=== PATIENT | male | born 1955 | race Caucasian/White ===

== ENCOUNTER 2017-03-31 08:30 | Day surgery (SDC) | payer OTHER ==
[2017-03-28 11:55] VITALS: BMI 25.8
[2017-03-31 08:47] LABS: #Eosinphils 0.2 thou/uL (0.0-0.7); #Monocytes 0.9 thou/uL (0.11-0.59); #Neutrophils 10.9 thou/uL (1.40-6.50); %Basophils 0.3 % (0.0-1.0); %Eosinophils 1.4 % (0.0-10.0); %Lymphocytes 13.9 % (21.0-51.0); %Monocytes 6.6 % (0.0-10.0); Hematocrit 52.1 % (42.0-52.0); Mean Platelet Volume 8.2 fL (7.4-10.4); Red Blood Cell (RBC) Count 5.55 mill/uL (4.70-6.10)
[2017-03-31 08:57] LABS: Prothrombin Time 12.7 SEC (12.0-14.7)
[2017-03-31 08:58] LABS: PTT 31.2 SEC (22.9-36.1)
[2017-03-31] MEDS ORDERED: FLU VACC QS2017-18 36 mo. & older 0.5 ML SYRINGE IM ONE (09:00)
[2017-03-31] MEDS ORDERED: Sodium Bicarbonate 2.4 MEQ/5 ML ONE (10:12)
[2017-03-31] MEDS ORDERED: Midazolam HCl 2 mg/2 ml Vial ONE (10:12)
[2017-03-31] MEDS ORDERED: Fentanyl 100 MCG/2 ML VIAL ONE (10:12)
[2017-03-31 14:07] VITALS: BP 129/77; TEMP 97.2
--- NOTE | 2017-03-31 15:14 | CT ---
CT GUIDED PELVIC MASS BIOPSY: History: Bone lesion. Abnormal MRI. FINDINGS: After explaining the procedure and obtaining informed consent, the patient was placed on the CT table in prone position. Initial retail attendant imaging confirmed destructive lesion at the L5 level of the spine. In addition, an expansile, destructive lesion of the right iliac bone was partially visualized. This has the appearance of the same process as the spine lesion. Given the location and relative safety of biopsy of the pelvis lesion compared to the spinal lesion, it was chosen as the target. Sterile technique, buffered local anesthesia, and CT guidance were used to carefully advance a 17 gau ge Trocar needle to the bone lesion. Three 18 gauge core specimens were obtained, each 3 cm in length , and submitted to Dr. Neal from Pathology, who confirmed specimen adequacy. Needle was removed. Pos t procedure images show no evidence of complication. Patient tolerated the procedure well and was ret urned to the holding area in good condition for further monitoring. IMPRESSION: Technically successful CT guided right pelvis bone mass lesion. This lesion appears to represent the same process as the destructive L5 lesion. Pathology is pending. POS: [facility]
== END 2017-03-31 12:00 | disposition home or self-care (01) ==
LOC: CT 08:30
PROVIDERS: ATTEND Neurological Surgery
PROC: 0QB23ZX Excision of Right Pelvic Bone, Percutaneous Approach, Diagnostic (ICD-10-PCS; principal; 2017-03-31)
DX: C41.4 Malignant neoplasm of pelvic bones, sacrum and coccyx (principal); I10 Essential (primary) hypertension; E78.5 Hyperlipidemia, unspecified; G51.0 Bell's palsy; F17.200 Nicotine dependence, unspecified, uncomplicated; Z79.82 Long term (current) use of aspirin; Z79.899 Other long term (current) drug therapy; Z88.0 Allergy status to penicillin; Z91.030 Bee allergy status
CPT/HCPCS: 20225; 36415; 77012; 85025; 85610; 85730; 88184; 88307; 88333; 88341; 88342; J2250; J3010

== ENCOUNTER 2017-05-07 12:31 | Day surgery (SDC) | payer SELFPAY ==
[2017-05-07] MEDS ORDERED: Famotidine/PF 20 MG, Admixture Fee 1 EACH in Sodium Chloride 0.9% 50 ML IVPB SCH (13:30)
[2017-05-07] MEDS ORDERED: PACLITAXEL IVPB SCH (13:30)
[2017-05-07] MEDS ORDERED: Dexamethasone 20 MG, Admixture Fee 1 EACH in Sodium Chloride 0.9% 50 ML IVPB SCH (13:30)
[2017-05-07] MEDS ORDERED: ADMIXTURE FEE IVPB SCH ×2 (13:30→13:45)
[2017-05-07] MEDS ORDERED: SODIUM CHLORIDE IVPB SCH ×2 (13:30→13:45)
[2017-05-07] MEDS ORDERED: diphenhydrAMINE 50 MG, Admixture Fee 1 EACH in Sodium Chloride 0.9% 50 ML IVPB SCH (13:30)
[2017-05-07] MEDS ORDERED: Palonosetron HCl 0.25 MG, Admixture Fee 1 EACH in Sodium Chloride 0.9% 50 ML IVPB SCH (13:30)
[2017-05-07] MEDS ORDERED: PALONOSETRON HCL 0.05 MG/ML 5 ML VIAL IVP SCH (13:45)
[2017-05-07] MEDS ORDERED: CARBOPLATIN IVPB SCH (13:45)
[2017-05-07] MEDS ORDERED: Famotidine/PF 20 mg/2ml Vial SLOW IVP SCH (13:45)
[2017-05-07 15:36] VITALS: BP 106/57; TEMP 98.7
[2017-05-07] MEDS ORDERED: Sodium Chloride 0.9% 20 ML ONE (15:47)
[2017-05-07] MEDS ORDERED: Sodium Chloride 0.9% 10 ML ONE (19:30)
== END 2017-05-07 19:53 | disposition home or self-care (01) ==
LOC: ONC/OP 12:31
PROVIDERS: ATTEND Internal Medicine Hematology & Oncology
DX: Z51.11 Encounter for antineoplastic chemotherapy (principal); C41.4 Malignant neoplasm of pelvic bones, sacrum and coccyx; G51.0 Bell's palsy; I10 Essential (primary) hypertension; E78.5 Hyperlipidemia, unspecified; Z88.0 Allergy status to penicillin; Z91.030 Bee allergy status; Z79.82 Long term (current) use of aspirin; Z79.899 Other long term (current) drug therapy; Z90.49 Acquired absence of other specified parts of digestive tract; Z98.890 Other specified postprocedural states; Z80.1 Family history of malignant neoplasm of trachea, bronchus and lung
CPT/HCPCS: 96367; 96375; 96413; 96415; A4216; J1100; J1200; J2469; J7050; J9045; J9267; S0028

== ENCOUNTER 2017-05-28 12:36 | Day surgery (SDC) | payer SELFPAY ==
[2017-05-28 12:56] VITALS: BP 118/58; TEMP 98.2
[2017-05-28] MEDS ORDERED: PALONOSETRON HCL 0.05 MG/ML 5 ML VIAL IVP SCH (13:00)
[2017-05-28] MEDS ORDERED: PACLITAXEL IVPB SCH (13:00)
[2017-05-28] MEDS ORDERED: Famotidine 40 MG/4 ML VIAL SLOW IVP SCH (13:00)
[2017-05-28] MEDS ORDERED: diphenhydrAMINE 50 MG/ML VIAL IVP SCH (13:00)
[2017-05-28] MEDS ORDERED: CARBOPLATIN IVPB SCH (13:00)
[2017-05-28] MEDS ORDERED: Dexamethasone 20 MG/5 ML VIAL SLOW IVP SCH (13:00)
[2017-05-28] MEDS ORDERED: SODIUM CHLORIDE IVPB SCH ×2 (13:00)
[2017-05-28] MEDS ORDERED: ADMIXTURE FEE IVPB SCH ×2 (13:00)
[2017-05-28] MEDS ORDERED: Sodium Chloride 0.9% 30 ML ONE (13:01)
[2017-05-28] MEDS ORDERED: Famotidine/PF 20 mg/2ml Vial SLOW IVP SCH (13:15)
[2017-05-28] MEDS ORDERED: Dexamethasone 10 MG/ML VIAL SLOW IVP SCH (13:30)
== END 2017-05-28 18:01 | disposition home or self-care (01) ==
LOC: ONC/OP 12:36
PROVIDERS: ATTEND Internal Medicine Hematology & Oncology
DX: Z51.11 Encounter for antineoplastic chemotherapy (principal); C34.30 Malignant neoplasm of lower lobe, unspecified bronchus or lung; R03.0 Elevated blood-pressure reading, without diagnosis of hypertension; G51.0 Bell's palsy; E78.00 Pure hypercholesterolemia, unspecified; F17.210 Nicotine dependence, cigarettes, uncomplicated; Z88.0 Allergy status to penicillin; Z91.030 Bee allergy status; Z79.82 Long term (current) use of aspirin; Z79.899 Other long term (current) drug therapy; Z90.49 Acquired absence of other specified parts of digestive tract; Z98.890 Other specified postprocedural states; Z80.1 Family history of malignant neoplasm of trachea, bronchus and lung
CPT/HCPCS: 96375; 96413; 96415; 96417; A4216; J1100; J1200; J2469; J7050; J9045; J9267; S0028

== ENCOUNTER 2017-06-18 10:42 | Day surgery (SDC) | payer OTHER, SELFPAY ==
[2017-06-18] MEDS ORDERED: SODIUM CHLORIDE IVPB SCH ×2 (11:30)
[2017-06-18] MEDS ORDERED: PALONOSETRON HCL 0.05 MG/ML 5 ML VIAL IVP SCH (11:30)
[2017-06-18] MEDS ORDERED: Dexamethasone 10 MG/ML VIAL SLOW IVP SCH (11:30)
[2017-06-18] MEDS ORDERED: Famotidine/PF 20 mg/2ml Vial IVPB SCH (11:30)
[2017-06-18] MEDS ORDERED: diphenhydrAMINE 50 MG/ML VIAL IVP SCH (11:30)
[2017-06-18] MEDS ORDERED: ADMIXTURE FEE IVPB SCH ×2 (11:30)
[2017-06-18] MEDS ORDERED: CARBOPLATIN IVPB SCH (11:30)
[2017-06-18] MEDS ORDERED: PACLITAXEL IVPB SCH (11:30)
[2017-06-18] MEDS ORDERED: Sodium Chloride 0.9% 20 ML ONE (11:31)
[2017-06-18 11:48] VITALS: BP 144/63; TEMP 99
== END 2017-06-18 16:31 | disposition home or self-care (01) ==
LOC: ONC/OP 10:42
PROVIDERS: ATTEND Internal Medicine Hematology & Oncology
DX: Z51.11 Encounter for antineoplastic chemotherapy (principal); C34.30 Malignant neoplasm of lower lobe, unspecified bronchus or lung; C79.51 Secondary malignant neoplasm of bone; R03.0 Elevated blood-pressure reading, without diagnosis of hypertension; E78.00 Pure hypercholesterolemia, unspecified; G51.0 Bell's palsy; F17.210 Nicotine dependence, cigarettes, uncomplicated; Z79.82 Long term (current) use of aspirin; Z79.899 Other long term (current) drug therapy; Z88.0 Allergy status to penicillin; Z91.030 Bee allergy status
CPT/HCPCS: 96375; 96413; 96415; 96417; A4216; J1100; J1200; J2469; J7050; J9045; J9267; S0028

== ENCOUNTER 2017-07-04 09:07 | Outpatient (CLI) | payer OTHER ==
[2017-07-04] MEDS ORDERED: Iopamidol 370 76% 100 ML VIAL ONE (11:32)
--- NOTE | 2017-07-04 12:03 | CT ---
CT THORAX WITH CONTRAST CT ABDOMEN WITH CONTRAST CT PELVIS WITH CONTRAST: DATE: 07-04-17 HISTORY: 61-year-old male with C34.30 malignant neoplasm of lower lobe, unspecified bronchus or lung. COMPARISON: The only prior studies available for comparison are CT guided bone biopsy of right pelvis, with limit ed field of view, and prior MRI of the lumbar spine of 03-05-17. There are no prior dedicated CT stud ies of the chest, abdomen, or pelvis. TECHNIQUE: IV iodinated contrast media: 100 ml Isovue 370 Oral contrast media: Redicat Single phase scans of thorax, abdomen, and pelvis. FINDINGS: There is a tiny 0.6 x 0.9 x 0.5 cm noncalcified pulmonary nodule located at the posterior segment of the left upper lobe, that contains a central cavitation. (Images 21 of 63, series 3; 166 of 1040, ser ies 4; and 88 of 151, series 601). Located more superiorly in the left upper lobe, in the apical post erior segment, there is a larger noncalcified pulmonary nodule close to the left lateral pleural surf edwin, which is stellate and irregular, making measurements imprecise. It is approximately 1.4 x 1.1 x 1.0 cm, containing multifocal cavitations and spiculated margins (Images 12 of 63, series 3; 86 of 15 1, series 601; 94 of 1040, series 4). The rest of the lungs are clear, with no airspace densities, ground glass densities, or consolidation s. No pleural effusion or pneumothorax. No bronchiectasis or bullous disease. Trachea and bronchi are patent and clear. No cardiomegaly. Normal thoracic aorta. No mediastinal or hilar lymphadenopathy. C alcification of LAD. Nondisplaced pathologic fracture of anterolateral aspect of left first rib. Mixe d sclerotic and lucent lesion of lateral aspect of left second rib, also involved with nondisplaced p athologic fracture. Small mixed sclerotic and osteolytic lesion involving the lateral aspect of right 8th rib. Expansile mixed osteolytic and sclerotic lesion of posterolateral aspect of right 11th rib, mostly osteolytic. Mixed sclerotic and osteolytic lesion involving right T11 vertebral pedicle. Liver, kidneys, adrenals, and spleen are normal. Pancreas is atrophic but has no evidence of acute pa ncreatitis or mass. No evidence of major lymphadenopathy involving portahepatis, retroperitoneum, mes entery, or iliac chains. No small bowel dilatation. No signs of acute colonic diverticulitis. No pneu moperitoneum or ascites. Large destruction, expansile mixed osteolytic and osteoblastic lesion involving a large portion of th e right iliac ring has grown significantly since the CT guided biopsy of 03-31-17. There is soft tiss ue mild low attenuation of the right iliactus muscle which may or may not be involved by the tumor. T he previously demonstrated pathologic fracture of L5 vertebral body has further lost its height, and is now severely collapsed. Both osteolytic and osteoblastic components, and soft tissue components na rrow the spinal canal. There are also extensive osteolytic lesions involving the bilateral sacral ala . There is a predominately osteolytic, expansile lesion involving the lesser trochanter of the right pr oximal femur. No free fluid within the pelvic cavity. Nonspecific mild mural thickening of the urinar y bladder. Prostate gland has calcifications, but is not significantly enlarged. Extensive atheroscle rotic disease of the abdominal aorta and iliac arteries without aneurysm. IMPRESSION: 1. Multiple osseous metastases involving ribs (some with pathologic fractures), at least one level in the thoracic spine, at least one level in the lumbar spine, sacrum, right iliac bone, and right prox imal femur. 2. The L5 lesion has become larger and causes severe central spinal canal stenosis and severe bilater al neural foraminal stenosis. 3. The large right iliac wing lesion has grown much larger. 4. Two very small left upper lobe cavitary pulmonary nodules. 5. No involvement of the contents of the abdominal and pelvic cavities. OLEGARIO Garza POS: [facility]
--- NOTE | 2017-07-04 14:27 | NM ---
WHOLE BODY BONE SCAN: Date: 07/04/17 INDICATION: History of lung cancer. COMPARISON: CT of the chest, abdomen, and pelvis dated 07/04/17. FINDINGS: There is prominent activity seen involving the right iliac bone corresponding to an expansile lesion in the right iliac wing. There is some focal activity seen within the posterior left sacrum. There is a prominent lucent lesion involving the right sacral ala which may demonstrate some peripheral activ ity. There is heterogeneous uptake seen involving L5 vertebra suspicious for metastatic disease. Ther e is a focal lesion within the right T11 pedicle. The lesion is within the right posterolateral 11th and right lateral 8th rib, which is suspicious for metastatic disease. There is a pathologic fracture involving the left anterolateral first rib. There is a lesion within the anterolateral left second r ib. There is a focal area of activity involving the left calvarium in the region of the left frontal region suspicious for focal metastatic disease. There is activity seen within the proximal femurs fabiano aterally, corresponding to metastatic lesions. IMPRESSION: Diffuse osseous metastatic disease. POS: [facility]
== END 2017-07-04 09:08 | disposition home or self-care (01) ==
LOC: CT 09:07
PROVIDERS: ATTEND Internal Medicine Hematology & Oncology
DX: C34.30 Malignant neoplasm of lower lobe, unspecified bronchus or lung (principal); C79.51 Secondary malignant neoplasm of bone; R91.8 Other nonspecific abnormal finding of lung field; M48.061 Spinal stenosis, lumbar region without neurogenic claudication; M99.53 Intervertebral disc stenosis of neural canal of lumbar region
CPT/HCPCS: 71260; 74177; 78306; 82565; A9503

== ENCOUNTER 2017-07-09 11:48 | Day surgery (SDC) | payer OTHER ==
[2017-07-09] MEDS ORDERED: CARBOPLATIN IVPB SCH (12:00)
[2017-07-09] MEDS ORDERED: SODIUM CHLORIDE 0.9% IVPB SCH ×2 (12:00)
[2017-07-09] MEDS ORDERED: PACLITAXEL IVPB SCH (12:00)
[2017-07-09] MEDS ORDERED: Famotidine 40 MG/4 ML VIAL SLOW IVP SCH (12:15)
[2017-07-09] MEDS ORDERED: diphenhydrAMINE 50 MG/ML VIAL IVP SCH (12:15)
[2017-07-09] MEDS ORDERED: Dexamethasone 10 MG/ML VIAL SLOW IVP SCH (12:15)
[2017-07-09] MEDS ORDERED: PALONOSETRON HCL 0.05 MG/ML 5 ML VIAL IVP SCH (12:15)
[2017-07-09] MEDS ORDERED: Sodium Chloride 0.9% 50 ML ONE (12:17)
[2017-07-09 12:29] VITALS: BP 136/68; TEMP 98.7
[2017-07-09] MEDS ORDERED: Famotidine/PF 20 mg/2ml Vial SLOW IVP SCH (12:45)
== END 2017-07-09 16:25 | disposition home or self-care (01) ==
LOC: ONC/OP 11:48
PROVIDERS: ATTEND Internal Medicine Hematology & Oncology
DX: Z51.11 Encounter for antineoplastic chemotherapy (principal); C34.30 Malignant neoplasm of lower lobe, unspecified bronchus or lung; C79.51 Secondary malignant neoplasm of bone; E78.00 Pure hypercholesterolemia, unspecified; F17.210 Nicotine dependence, cigarettes, uncomplicated; I10 Essential (primary) hypertension; Z88.0 Allergy status to penicillin; Z91.030 Bee allergy status; Z79.82 Long term (current) use of aspirin; Z79.899 Other long term (current) drug therapy
CPT/HCPCS: 96375; 96413; 96415; 96417; A4216; J1100; J1200; J2469; J7050; J9045; J9267; S0028

== ENCOUNTER 2017-07-30 11:43 | Day surgery (SDC) | payer OTHER ==
[2017-07-30] MEDS ORDERED: ADMIXTURE FEE IVPB SCH ×2 (12:15→12:30)
[2017-07-30] MEDS ORDERED: PALONOSETRON HCL 0.05 MG/ML 5 ML VIAL IVP SCH (12:15)
[2017-07-30] MEDS ORDERED: CARBOPLATIN IVPB SCH (12:15)
[2017-07-30] MEDS ORDERED: Dexamethasone 10 MG/ML VIAL SLOW IVP SCH (12:15)
[2017-07-30] MEDS ORDERED: SODIUM CHLORIDE IVPB SCH ×2 (12:15→12:30)
[2017-07-30] MEDS ORDERED: ETOPOSIDE IVPB SCH (12:30)
[2017-07-30 13:07] VITALS: BP 89/53; TEMP 98.5
== END 2017-07-30 14:51 | disposition home or self-care (01) ==
LOC: ONC/OP 11:43
PROVIDERS: ATTEND Internal Medicine Hematology & Oncology
DX: Z51.11 Encounter for antineoplastic chemotherapy (principal); C34.30 Malignant neoplasm of lower lobe, unspecified bronchus or lung; C79.51 Secondary malignant neoplasm of bone; F17.210 Nicotine dependence, cigarettes, uncomplicated; Z88.0 Allergy status to penicillin; Z91.030 Bee allergy status; Z79.82 Long term (current) use of aspirin; Z79.899 Other long term (current) drug therapy
CPT/HCPCS: 96375; 96413; 96417; A4216; J1100; J2469; J7050; J9045; J9181

== ENCOUNTER 2017-07-31 12:04 | Day surgery (SDC) | payer OTHER ==
[2017-07-31] MEDS ORDERED: ADMIXTURE FEE IVPB SCH (12:30)
[2017-07-31] MEDS ORDERED: SODIUM CHLORIDE IVPB SCH (12:30)
[2017-07-31] MEDS ORDERED: ETOPOSIDE IVPB SCH (12:30)
[2017-07-31 12:48] VITALS: BP 108/57; TEMP 98.2
== END 2017-07-31 18:23 | disposition home or self-care (01) ==
LOC: ONC/OP 12:04
PROVIDERS: ATTEND Internal Medicine Hematology & Oncology
DX: Z51.11 Encounter for antineoplastic chemotherapy (principal); C34.30 Malignant neoplasm of lower lobe, unspecified bronchus or lung; I10 Essential (primary) hypertension; E78.5 Hyperlipidemia, unspecified; G51.0 Bell's palsy; Z79.82 Long term (current) use of aspirin; Z79.899 Other long term (current) drug therapy; Z88.0 Allergy status to penicillin; Z91.030 Bee allergy status
CPT/HCPCS: 96413; J7050; J9181

== ENCOUNTER 2017-08-01 11:10 | Day surgery (SDC) | payer OTHER ==
[2017-08-01] MEDS ORDERED: Sodium Chloride 0.9% 30 ML ONE (11:16)
[2017-08-01 11:43] VITALS: BP 120/60; TEMP 98.1
[2017-08-01] MEDS ORDERED: SODIUM CHLORIDE 0.9% IVPB SCH (11:45)
[2017-08-01] MEDS ORDERED: ETOPOSIDE IVPB SCH (11:45)
== END 2017-08-01 12:20 | disposition home or self-care (01) ==
LOC: ONC/OP 11:10
PROVIDERS: ATTEND Internal Medicine Hematology & Oncology
DX: Z51.11 Encounter for antineoplastic chemotherapy (principal); C34.30 Malignant neoplasm of lower lobe, unspecified bronchus or lung; I10 Essential (primary) hypertension; E78.5 Hyperlipidemia, unspecified; G51.0 Bell's palsy; Z88.0 Allergy status to penicillin; Z91.030 Bee allergy status; Z98.890 Other specified postprocedural states
CPT/HCPCS: 96413; A4216; J7050; J9181

== ENCOUNTER 2017-08-20 11:16 | Day surgery (SDC) | payer OTHER ==
[2017-08-20] MEDS ORDERED: Acetaminophen 500 MG TAB PO SCH (12:00)
[2017-08-20] MEDS ORDERED: diphenhydrAMINE 25 MG CAP PO SCH (12:00)
[2017-08-20 19:10] VITALS: BP 107/58; TEMP 96
[2017-08-20 19:39] LABS: Anisocytosis SLIGHT = 6-15 cells (100X) (0-5/hpf); Band 1 % (5-11); Eosinophils 1 % (0-10); Hemoglobin 8.1 g/dL (14.0-18.0); Lymphocytes 44 % (21-51); MDiff Complete? YES; Mean Corpuscular HGB CONC 35.8 g/dL (32.0-36.0); Mean Corpuscular Hemoglobin 33.7 pg (27.0-31.0); Mean Corpuscular Volume 94.1 fl (80.0-94.0); Mean Platelet Volume 8.5 fL (7.4-10.4); Monocytes 4 % (0-10); Neutrophil 50 % (42-75); Nucleated RBC 1 % (0); PLT Morphology Comment Appears Decreased; Platelet Count 52 thou/uL (130-400); RBC Distribution Width 14.7 % (11.5-14.5); Red Blood Cell (RBC) Count 2.39 mill/uL (4.70-6.10); White Blood Cell (WBC) Count 1.7 thou/uL (4.8-10.8)
== END 2017-08-20 19:10 | disposition home or self-care (01) ==
LOC: ONC/OP 11:16
PROVIDERS: ATTEND Internal Medicine Hematology & Oncology
PROC: 30233N1 Transfusion of Nonautologous Red Blood Cells into Peripheral Vein, Percutaneous Approach (ICD-10-PCS; principal; 2017-08-20)
DX: C34.90 Malignant neoplasm of unspecified part of unspecified bronchus or lung (principal); D63.0 Anemia in neoplastic disease; D69.6 Thrombocytopenia, unspecified; Z88.0 Allergy status to penicillin; Z91.030 Bee allergy status
CPT/HCPCS: 36415; 36430; 85025; 86850; 86900; 86901; P9016

== ENCOUNTER 2017-08-26 09:11 | Day surgery (SDC) | payer OTHER ==
[2017-08-26] MEDS ORDERED: ADMIXTURE FEE IVPB SCH ×2 (09:45)
[2017-08-26] MEDS ORDERED: Dexamethasone 10 MG/ML VIAL SLOW IVP SCH (09:45)
[2017-08-26] MEDS ORDERED: CARBOPLATIN IVPB SCH (09:45)
[2017-08-26] MEDS ORDERED: SODIUM CHLORIDE IVPB SCH ×2 (09:45)
[2017-08-26] MEDS ORDERED: ETOPOSIDE IVPB SCH (09:45)
[2017-08-26] MEDS ORDERED: PALONOSETRON HCL 0.05 MG/ML 5 ML VIAL IVP SCH (09:45)
[2017-08-26 09:49] VITALS: BP 110/57; TEMP 98.3
[2017-08-26] MEDS ORDERED: Sodium Chloride 0.9% 40 ML ONE (11:03)
== END 2017-08-26 14:31 | disposition home or self-care (01) ==
LOC: ONC/OP 09:11
PROVIDERS: ATTEND Internal Medicine Hematology & Oncology
DX: Z51.11 Encounter for antineoplastic chemotherapy (principal); C34.30 Malignant neoplasm of lower lobe, unspecified bronchus or lung; Z91.030 Bee allergy status; Z88.0 Allergy status to penicillin
CPT/HCPCS: 96375; 96413; 96417; A4216; J1100; J2469; J7050; J9045; J9181

== ENCOUNTER 2017-08-27 09:46 | Day surgery (SDC) | payer OTHER ==
[2017-08-27] MEDS ORDERED: ETOPOSIDE IVPB SCH (10:00)
[2017-08-27] MEDS ORDERED: SODIUM CHLORIDE IVPB SCH (10:00)
[2017-08-27] MEDS ORDERED: ADMIXTURE FEE IVPB SCH (10:00)
[2017-08-27 13:37] VITALS: BP 133/60; TEMP 98.1
== END 2017-08-27 13:40 | disposition home or self-care (01) ==
LOC: ONC/OP 09:46
PROVIDERS: ATTEND Internal Medicine Hematology & Oncology
DX: Z51.11 Encounter for antineoplastic chemotherapy (principal); C34.30 Malignant neoplasm of lower lobe, unspecified bronchus or lung; Z88.0 Allergy status to penicillin; Z91.030 Bee allergy status
CPT/HCPCS: 96413; J7050; J9181

== ENCOUNTER 2017-08-28 09:23 | Day surgery (SDC) | payer OTHER, SELFPAY ==
[2017-08-28] MEDS ORDERED: ETOPOSIDE IVPB SCH (09:45)
[2017-08-28] MEDS ORDERED: ADMIXTURE FEE IVPB SCH (09:45)
[2017-08-28] MEDS ORDERED: SODIUM CHLORIDE IVPB SCH (09:45)
[2017-08-28 10:49] VITALS: BP 143/77; TEMP 98
== END 2017-08-28 11:35 | disposition home or self-care (01) ==
LOC: ONC/OP 09:23
PROVIDERS: ATTEND Internal Medicine Hematology & Oncology
DX: Z51.11 Encounter for antineoplastic chemotherapy (principal); C34.30 Malignant neoplasm of lower lobe, unspecified bronchus or lung; Z88.0 Allergy status to penicillin; Z91.030 Bee allergy status
CPT/HCPCS: 96413; J7050; J9181

== ENCOUNTER 2017-09-03 08:13 | Day surgery (SDC) | payer OTHER, SELFPAY ==
[2017-09-03] MEDS ORDERED: Pegfilgrastim 6 MG/0.6 ML Delivery Kit SQ SCH (08:30)
[2017-09-03] MEDS ORDERED: diphenhydrAMINE 25 MG CAP PO SCH (08:30)
[2017-09-03] MEDS ORDERED: Acetaminophen 500 MG TAB PO SCH (08:30)
[2017-09-03] MEDS ORDERED: Sodium Chloride 0.9% 40 ML ONE (08:45)
[2017-09-03 12:46] LABS: Hemoglobin 8.2 g/dL (14.0-18.0)
[2017-09-03 15:19] VITALS: BP 117/64; TEMP 98.1
== END 2017-09-03 15:19 | disposition home or self-care (01) ==
LOC: ONC/OP 08:13
PROVIDERS: ATTEND Internal Medicine Hematology & Oncology
DX: D64.9 Anemia, unspecified (principal); D69.6 Thrombocytopenia, unspecified; Z88.0 Allergy status to penicillin; Z91.030 Bee allergy status
CPT/HCPCS: 36430; 85014; 85018; 86850; 86900; 86901; 96372; 96377; A4216; J2505; P9016

== ENCOUNTER 2017-09-07 05:33 | Observation (INO) | payer OTHER ==
[2017-09-07] MEDS ORDERED: Aspirin 325 MG TAB ONE (06:15)
[2017-09-07 06:33] LABS: ALT (SGPT) 25 U/L (8-55); AST (SGOT) 18 U/L (5-34); Albumin 4.1 g/dL (3.4-4.8); Alkaline Phosphatase 188 U/L (40-150); Anion Gap 11 mmol/L (10-20); BUN (Urea Nitrogen) 34 mg/dL (8.4-25.7); Bilirubin, Total 0.4 mg/dL (0.2-1.2); CK (CPK) 45 U/L (30-200); Calc. Creatinine Clearance 0 mL/min (70-130); Calcium 9.4 mg/dL (7.8-10.44); Carbon Dioxide 24 mmol/L (23-31); Chloride 108 mmol/L (98-107); Estimated GFR-MDRD 65; Globulin 3.1 g/dL (2.4-3.5); Glucose 102 mg/dL (80-115); Lipase 11 U/L (8-78); Potassium 4.4 mmol/L (3.5-5.1); Protein, Total 7.2 g/dL (5.8-8.1); Sodium 139 mmol/L (136-145)
[2017-09-07 06:34] LABS: Hemoglobin 10.1 g/dL (14.0-18.0); Mean Corpuscular HGB CONC 34.6 g/dL (32.0-36.0); Mean Corpuscular Hemoglobin 32.8 pg (27.0-31.0); Mean Corpuscular Volume 94.7 fl (80.0-94.0); Mean Platelet Volume 8.9 fL (7.4-10.4); Platelet Count 54 thou/uL (130-400); RBC Distribution Width 15.4 % (11.5-14.5); Red Blood Cell (RBC) Count 3.07 mill/uL (4.70-6.10); White Blood Cell (WBC) Count 7.8 thou/uL (4.8-10.8)
[2017-09-07 06:37] LABS: Troponin I Less than 0.010 ng/mL (< 0.028)
[2017-09-07 06:47] LABS: Anisocytosis SLIGHT = 6-15 cells (100X) (0-5/hpf); Band 20 % (5-11); Lymphocytes 16 % (21-51); MDiff Complete? YES; Monocytes 12 % (0-10); Neutrophil 52 % (42-75); PLT Morphology Comment Appears Decreased
--- NOTE | 2017-09-07 09:00 | CT ---
CT ANGIOGRAM OF THE CHEST: HISTORY: Small cell carcinoma of lower back. The patient is undergoing chemotherapy. COMPARISON: None. TECHNIQUE: CT angiogram of the chest is performed in the axial plane. Three-dimensional reformatted images are submitted for interpretation. FINDINGS: No mediastinal mass, lymphadenopathy, or hematoma. Heart size is within normal limits. No pericardi al effusion. The thoracic aorta and upper abdominal aorta have a normal caliber. No periaortic fat stranding. Visualized upper solid organs are unremarkable. Adequate contrast opacification of pulmonary artery system to the level of the segmental arteries. N o filling defect to suggest thromboembolism. No suspicious masses or areas of consolidation of the lung parenchyma. Trachea and central bronchi a re patent. No pneumothorax. There are sclerotic foci in the osseous structures suggesting treated m etastatic lesions. IMPRESSION: No evidence of pulmonary artery embolism to the level of the segmental arteries. POS: [facility]
--- NOTE | 2017-09-07 09:07 | RAD ---
CHEST ONE VIEW: HISTORY: Pain x4 hours. FINDINGS: Normal cardiac silhouette. Lungs and pleural spaces are clear. No pneumothorax or osseous abnormali ties . IMPRESSION: No acute cardiopulmonary process. POS: H
[2017-09-07 09:25] LABS: Troponin I Less than 0.010 ng/mL (< 0.028)
[2017-09-07 09:31] VITALS: BMI 25.1
[2017-09-07] MEDS ORDERED: Regadenoson 0.4 MG/5 ML SYRINGE ONE (11:48)
[2017-09-07] MEDS ORDERED: Mag-Al 1200 mg/1200 mg/30 ML UDCUP PO PRN (12:08)
[2017-09-07] MEDS ORDERED: Acetaminophen 325 MG TAB PO PRN (12:08)
[2017-09-07] MEDS ORDERED: Pepto Bismol Chew TAB PO PRN (12:08)
[2017-09-07] MEDS ORDERED: Ondansetron ODT 8 MG TAB PO PRN (12:08)
[2017-09-07 12:35] LABS: Cardiac Risk 3.6 (Less than 4.5)
[2017-09-07] MEDS ORDERED: Morphine ER 30 MG TAB PO SCH ×2 (13:00→21:00)
[2017-09-07] MEDS ORDERED: ISOVUE-370 76%-LOCM 1 ML ONE (14:11)
[2017-09-07 15:42] VITALS: BP 160/73; TEMP 98.5
--- NOTE | 2017-09-07 15:47 | NM ---
NUCLEAR MEDICINE CARDIAC STRESS WITH EF AND WALL MOTION: HISTORY: Chest pain. COMPARISON: None. TECHNIQUE: The patient was administered 9.5 mCi of Technetium 99m sestamibi for rest imaging and 27 mCi of Techn etium 99m sestamibi for stress imaging. Cardiac gating is performed. FINDINGS: There is homogeneous distribution of the radiotracer on the attenuation correction images. TID is 1.08. End-diastolic volume is 144 mL. End-systolic volume is 66 mL. CARDIAC GATING: Normal motion and thickening of the left ventricle. 54% ejection fraction. IMPRESSION: 1. No evidence of reversibility. No fixed defect. 2. Ejection fraction is 54%. POS: [facility]
--- NOTE | 2017-09-07 15:56 | HP ---
REASON FOR ADMISSION: Chest pain. HISTORY OF PRESENTING ILLNESS: The patient gives history of retrosternal and epigastric pain radiating to the back and both shoulders which started around 11 :30 p.m. yesterday. He tried to sit in his recliner, got worse, but got some relief when he tried to ambulate. Also, patient states that he got 325 mg of aspirin by EMS and felt better after that. He finally called his sister to say the ongoing chest pain at home who in turn called EMS and patient was brought here. No complaints of shortness of breath. The patient has significant history of small cell lung cancer and has finished radiation therapy 3 weeks back and has 1 more chemotherapy session, which is coming up. He has no complaints of cough or expectoration. No complaints of fever. No prior history of peptic ulcer disease. PAST MEDICAL AND SURGICAL HISTORY: History of small cell lung cancer on chemotherapy at present, chronic left Daily's palsy, hypertension, dyslipidemia, appendectomy, left knee surgery. No prior cardiac workup including stress test , recent left eyebrow laceration from a freak accident after he was turning away from a wasp and hit his head. CURRENT MEDICATIONS: The patient is on lisinopril 20 mg daily, amlodipine 5 mg daily, aspirin 81 mg daily, simvastatin 40 mg daily, Lasix 20 mg p.r.n. for ankle edema, morphine 30 mg twice daily, and gabapentin 300 mg p.o. twice daily. ALLERGIES: PENICILLIN. PERSONAL HISTORY: Quit smoking in April of this year after being diagnosed with small cell lung cancer. Does not abuse alcohol or drugs. FAMILY HISTORY: Mother of lung cancer and its complications at the age of 74. Father of PE and its complications at the age of 62. CODE STATUS: FULL. REVIEW OF SYSTEMS: The following complete review of systems was negative, unless otherwise mentioned in the HPI or below: Constitutional: Weight loss or gain, ability to conduct usual activities. Skin: Rash, itching. Eyes: Double vision, pain. ENT/Mouth: Nose bleeding, neck stiffness, pain, tenderness. Cardiovascular: Palpitations, dyspnea on exertion, orthopnea. Respiratory: Shortness of breath, wheezing, cough, hemoptysis, fever or night sweats. Gastrointestinal: Poor appetite, abdominal pain, heartburn, nausea, vomiting, constipation, or diarrhea. Genitourinary: Urgency, frequency, dysuria, nocturia. Musculoskeletal: Pain, swelling. Neurologic/Psychiatric: Anxiety, depression. Allergy/Immunologic: Skin rash, bleeding tendency. PHYSICAL EXAMINATION: GENERAL: Patient is a 62-year-old male who is currently not in any acute distress and is chest pain free. VITAL SIGNS: Blood pressure 156/74, pulse 70 per minute, respiratory rate 18 per minute, temperature 98 degrees Fahrenheit, and saturating 98% on room air. NECK: Supple, no elevated JVD. HEENT: Extraocular muscles intact. Pupils reacting to light. Oral cavity, mucous membranes are moist. No exudates or congestion. CARDIOVASCULAR SYSTEM: S1, S2 heard. Regular rhythm. RESPIRATORY SYSTEM: Air entry 1+ bilaterally. No rales or rhonchi. ABDOMEN: Soft, bowel sounds heard. No tenderness, rigidity or guarding. EXTREMITIES: No peripheral edema or calf tenderness. VASCULAR SYSTEM: Peripheral pulses 1+ bilateral, no ischemic ulcerations or gangrene. CENTRAL NERVOUS SYSTEM: No gross focal deficits seen. Patient is alert, awake , and oriented well. PSYCHIATRIC SYSTEM: The patient's mood is euthymic. No hallucinations or delusions. IMAGING DATA AND LABORATORY DATA: EKG done shows sinus rhythm at 62 beats per minute. Troponin x2 is negative. CK-MB 1.0. White count of 7.8, hemoglobin and hematocrit 10 and 29, platelet count is 54 with 52% neutrophils, 20% bands, 16% lymphocytes, 12% monocytes, LDL is 71, total cholesterol 125, triglycerides 96, albumin is 4.1. Lipase is 11. CT angio chest done shows no evidence of pulmonary embolism. There are sclerotic focus in the osseous structures suggesting treated metastatic lesions. CLINICAL IMPRESSION AND PLAN: The patient will be under observation on telemetry for chest pain, rule out ACS. We will follow ACS evidence based protocol. The patient will have nuclear stress test today. If this is normal, he will be shortly discharged home on Protonix daily. We will continue his Norvasc, atorvastatin/Zocor, lisinopril, morphine extended release as before. We will continue to closely monitor him on telemetry. Addendum: nuclear stress test is -ve for reversible ischemia, has good EF. Discharge pt home on protonix for 4 weeks. Please note this is a same day observation admission and discharge note. FLORIAN
[2017-09-07] MEDS ORDERED: Gabapentin 300 MG CAP PO SCH (21:00)
[2017-09-07] MEDS ORDERED: Famotidine 20 MG TAB PO SCH (21:00)
[2017-09-07] MEDS ORDERED: Atorvastatin Calcium 20 MG TAB PO SCH (21:00)
[2017-09-08] MEDS ORDERED: Multivitamin W/ Minerals 1 TAB PO SCH (09:00)
[2017-09-08] MEDS ORDERED: Lisinopril 20 MG TAB PO SCH (09:00)
[2017-09-08] MEDS ORDERED: Amlodipine 5 MG TAB PO SCH (09:00)
[2017-09-08] MEDS ORDERED: Docusate 100 MG CAP PO SCH (09:00)
[2017-09-08] MEDS ORDERED: Aspirin 325 MG TAB PO SCH (09:00)
== END 2017-09-07 17:20 | disposition home or self-care (01) ==
LOC: ERS 05:33 → 2SW 08:57
PROVIDERS: ADMIT Internal Medicine; ATTEND Internal Medicine
DX: R07.9 Chest pain, unspecified (principal); I10 Essential (primary) hypertension; E78.5 Hyperlipidemia, unspecified; Z79.899 Other long term (current) drug therapy; Z79.82 Long term (current) use of aspirin; Z88.0 Allergy status to penicillin; Z87.891 Personal history of nicotine dependence
CPT/HCPCS: 36415; 71045; 71275; 78452; 80053; 80061; 82550; 82553; 83690; 84484; 85025; 93005; 93017; 94760; A9500; G0378; J2785

== ENCOUNTER 2017-09-12 08:32 | Outpatient (CLI) | payer OTHER ==
--- NOTE | 2017-09-12 12:57 | NM ---
WHOLE BODY BONE SCAN: HISTORY: Metastatic lung cancer. COMPARISON: 07/04/2017 TECHNIQUE: The patient was administered 30.8 millicuries technetium 99m for whole body imaging. FINDINGS: There is expected distribution of the tracer in the soft tissues. Redemonstration of increased radiotracer localization involving the left calvarium, 1st left rib, lat eral right 11 rib, right T11 pedicle, L5 vertebral body posterior elements, sacrum, right iliac wing, left anterior iliac bone, and proximal left and right femurs. the overall degree and distribution i s consistent with diffuse multifocal osseous metastases. Degenerative changes in the shoulders and knees, as well as in the feet and ankle, are noted. There are no new lesions. IMPRESSION: Diffuse osseous metastases, essentially stable. No appreciable change. No new lesions are appreciat ed. POS: [facility]
--- NOTE | 2017-09-12 14:07 | CT ---
CT CHEST WITH IV CONTRAST CT ABDOMEN WITH IV CONTRAST CT PELVIS WITH IV CONTRAST: HISTORY: A 62-year-old with malignant neoplasm of lower lobe lung. The patient is status post chemoradiation therapy. Last radiation therapy was 2 weeks ago. COMPARISON: 07/04/17. CORRELATION: Bone scan of same date. FINDINGS: No mediastinal, hilar, or axillary mass or lymphadenopathy is seen. No pleural or pericardial effusi ons are identified. The nodule in the peripheral aspect of the left upper lobe is slightly smaller m easuring about 12 mm in larger dimension (previously 14 mm). The 2nd nodule, which is unclear (locat ed in the posterior segment of the left upper lobe) is also slightly small and measuring about 4 mm ( previously 9 mm). No new lung nodules are seen. The liver, spleen, pancreas, adrenal glands, and kidneys are normal. No calcified gallstones are see n. No free air, free fluid, or lymphadenopathy is identified in the abdomen or pelvis. There is col onic diverticulosis. Vascular calcifications are present without evidence of aneurysmal dilatation o f the thoracoabdominal aorta. Multiple osteolytic, osteoblastic, and mixed lesions are again seen. Some of the osteolytic lesions demonstrate internal sclerotic change likely due to healing. The collapsed L5 vertebral body (pathol ogic fracture) is again noted with accompanying spinal canal stenosis. The expansile right iliac win g lesion is redemonstrated. IMPRESSION: 1. Mild interval reduction in size of the lung nodules since 07/04/17. 2. Osseous metastatic disease with new foci of sclerosis in some of the previously noted osteolytic lesions likely secondary to treatment response. POS: [facility]
[2017-09-12] MEDS ORDERED: Iopamidol 370 76% 100 ML VIAL ONE (18:21)
== END 2017-09-12 08:33 | disposition home or self-care (01) ==
LOC: CT 08:32
PROVIDERS: ATTEND Internal Medicine Hematology & Oncology
DX: C34.30 Malignant neoplasm of lower lobe, unspecified bronchus or lung (principal); C79.51 Secondary malignant neoplasm of bone
CPT/HCPCS: 71260; 74177; 78306; A9503

== ENCOUNTER 2017-09-16 12:29 | Day surgery (SDC) | payer OTHER ==
[2017-09-16] MEDS ORDERED: Sodium Chloride 0.9% 30 ML ONE (12:57)
[2017-09-16] MEDS ORDERED: PALONOSETRON HCL 0.05 MG/ML 5 ML VIAL IVP SCH (13:30)
[2017-09-16] MEDS ORDERED: SODIUM CHLORIDE 0.9% IVPB SCH ×2 (13:30)
[2017-09-16] MEDS ORDERED: ETOPOSIDE IVPB SCH (13:30)
[2017-09-16] MEDS ORDERED: Dexamethasone 10 MG/ML VIAL SLOW IVP SCH (13:30)
[2017-09-16] MEDS ORDERED: CARBOPLATIN IVPB SCH (13:30)
== END 2017-09-16 16:57 | disposition home or self-care (01) ==
LOC: ONC/OP 12:29
PROVIDERS: ATTEND Internal Medicine Hematology & Oncology
DX: Z51.11 Encounter for antineoplastic chemotherapy (principal); C34.30 Malignant neoplasm of lower lobe, unspecified bronchus or lung; E78.00 Pure hypercholesterolemia, unspecified; D64.9 Anemia, unspecified; F17.200 Nicotine dependence, unspecified, uncomplicated; Z88.0 Allergy status to penicillin; Z91.030 Bee allergy status; Z79.82 Long term (current) use of aspirin; Z79.899 Other long term (current) drug therapy
CPT/HCPCS: 96375; 96413; 96417; A4216; J1100; J2469; J7050; J9045; J9181

== ENCOUNTER 2017-09-17 08:56 | Day surgery (SDC) | payer OTHER ==
[2017-09-17] MEDS ORDERED: Sodium Chloride 0.9% 20 ML ONE (09:07)
[2017-09-17] MEDS ORDERED: ETOPOSIDE IVPB SCH (09:30)
[2017-09-17] MEDS ORDERED: SODIUM CHLORIDE 0.9% IVPB SCH (09:30)
== END 2017-09-17 12:14 | disposition home or self-care (01) ==
LOC: ONC/OP 08:56
PROVIDERS: ATTEND Internal Medicine Hematology & Oncology
DX: Z51.11 Encounter for antineoplastic chemotherapy (principal); C34.30 Malignant neoplasm of lower lobe, unspecified bronchus or lung; Z88.0 Allergy status to penicillin
CPT/HCPCS: 96413; A4216; J7050; J9181

== ENCOUNTER 2017-09-18 09:05 | Day surgery (SDC) | payer OTHER ==
[2017-09-18] MEDS ORDERED: ETOPOSIDE IVPB SCH (09:15)
[2017-09-18] MEDS ORDERED: SODIUM CHLORIDE 0.9% IVPB SCH (09:15)
[2017-09-18] MEDS ORDERED: Pegfilgrastim 6 MG/0.6 ML Delivery Kit SQ SCH (09:15)
[2017-09-18 09:53] VITALS: BP 156/68; TEMP 98.1
== END 2017-09-18 12:18 | disposition home or self-care (01) ==
LOC: ONC/OP 09:05
PROVIDERS: ATTEND Internal Medicine Hematology & Oncology
DX: Z51.11 Encounter for antineoplastic chemotherapy (principal); C34.30 Malignant neoplasm of lower lobe, unspecified bronchus or lung; Z88.0 Allergy status to penicillin; Z91.030 Bee allergy status
CPT/HCPCS: 96377; 96413; J2505; J7050; J9181

== ENCOUNTER 2017-09-30 09:49 | Day surgery (SDC) | payer OTHER ==
[2017-09-30] MEDS ORDERED: diphenhydrAMINE 25 MG CAP PO SCH (10:15)
[2017-09-30] MEDS ORDERED: Acetaminophen 500 MG TAB PO SCH (10:15)
[2017-09-30 14:34] VITALS: BP 122/58; TEMP 97.7
== END 2017-09-30 14:34 | disposition home or self-care (01) ==
LOC: ONC/OP 09:49
PROVIDERS: ATTEND Internal Medicine Hematology & Oncology
DX: D64.9 Anemia, unspecified (principal); D69.6 Thrombocytopenia, unspecified; Z88.0 Allergy status to penicillin; Z91.030 Bee allergy status
CPT/HCPCS: 36430; 86850; 86900; 86901; P9016

== ENCOUNTER 2017-10-07 12:40 | Day surgery (SDC) | payer OTHER ==
[2017-10-07] MEDS ORDERED: Dexamethasone 10 MG/ML VIAL SLOW IVP SCH (13:15)
[2017-10-07] MEDS ORDERED: SODIUM CHLORIDE 0.9% IVPB SCH ×2 (13:15)
[2017-10-07] MEDS ORDERED: PALONOSETRON HCL 0.05 MG/ML 5 ML VIAL IVP SCH (13:15)
[2017-10-07] MEDS ORDERED: CARBOPLATIN IVPB SCH (13:15)
[2017-10-07] MEDS ORDERED: ETOPOSIDE IVPB SCH (13:15)
[2017-10-07 13:30] VITALS: BP 150/67; TEMP 98.4
== END 2017-10-07 16:44 | disposition home or self-care (01) ==
LOC: ONC/OP 12:40
PROVIDERS: ATTEND Internal Medicine Hematology & Oncology
DX: Z51.11 Encounter for antineoplastic chemotherapy (principal); C34.30 Malignant neoplasm of lower lobe, unspecified bronchus or lung; C79.51 Secondary malignant neoplasm of bone; D64.81 Anemia due to antineoplastic chemotherapy; T45.1X5A Adverse effect of antineoplastic and immunosuppressive drugs, initial encounter; E78.00 Pure hypercholesterolemia, unspecified; I10 Essential (primary) hypertension; F17.210 Nicotine dependence, cigarettes, uncomplicated; Z88.0 Allergy status to penicillin; Z79.82 Long term (current) use of aspirin; Z79.899 Other long term (current) drug therapy
CPT/HCPCS: 96375; 96413; 96417; J1100; J2469; J7050; J9045; J9181

== ENCOUNTER 2017-10-08 09:05 | Day surgery (SDC) | payer OTHER ==
[2017-10-08] MEDS ORDERED: ETOPOSIDE IVPB SCH (09:30)
[2017-10-08] MEDS ORDERED: SODIUM CHLORIDE 0.9% IVPB SCH (09:30)
[2017-10-08 09:38] VITALS: BP 139/65; TEMP 98.1
[2017-10-08] MEDS ORDERED: Sodium Chloride 0.9% 20 ML ONE (09:55)
[2017-10-09] MEDS ORDERED: ETOPOSIDE IVPB SCH (09:15)
[2017-10-09] MEDS ORDERED: SODIUM CHLORIDE 0.9% IVPB SCH (09:15)
== END 2017-10-08 11:09 | disposition home or self-care (01) ==
LOC: ONC/OP 09:05
PROVIDERS: ATTEND Internal Medicine Hematology & Oncology
DX: Z51.11 Encounter for antineoplastic chemotherapy (principal); C34.30 Malignant neoplasm of lower lobe, unspecified bronchus or lung; Z88.0 Allergy status to penicillin
CPT/HCPCS: 96413; A4216; J7050; J9181

== ENCOUNTER 2017-10-09 08:45 | Day surgery (SDC) | payer OTHER ==
[2017-10-09] MEDS ORDERED: ETOPOSIDE IVPB SCH (09:15)
[2017-10-09] MEDS ORDERED: SODIUM CHLORIDE 0.9% IVPB SCH (09:15)
[2017-10-09] MEDS ORDERED: Sodium Chloride 0.9% 20 ML ONE (09:25)
[2017-10-09 09:32] VITALS: BP 145/65; TEMP 98.3
[2017-10-09] MEDS ORDERED: Pegfilgrastim 6 MG/0.6 ML Delivery Kit SQ SCH (09:45)
== END 2017-10-09 11:00 | disposition home or self-care (01) ==
LOC: ONC/OP 08:45
PROVIDERS: ATTEND Internal Medicine Hematology & Oncology
DX: Z51.11 Encounter for antineoplastic chemotherapy (principal); C34.30 Malignant neoplasm of lower lobe, unspecified bronchus or lung; Z88.0 Allergy status to penicillin
CPT/HCPCS: 96377; 96413; A4216; J2505; J7050; J9181

== ENCOUNTER 2017-10-14 09:03 | Day surgery (SDC) | payer OTHER ==
[2017-10-14] MEDS ORDERED: Acetaminophen 500 MG TAB PO SCH (09:15)
[2017-10-14] MEDS ORDERED: Sodium Chloride 0.9% 30 ML ONE (09:15)
[2017-10-14] MEDS ORDERED: diphenhydrAMINE 25 MG CAP PO SCH (09:15)
[2017-10-14 13:54] LABS: Hemoglobin 8.8 g/dL (14.0-18.0)
[2017-10-14 16:43] VITALS: BP 120/64; TEMP 97.5
== END 2017-10-14 17:11 | disposition home or self-care (01) ==
LOC: ONC/OP 09:03
PROVIDERS: ATTEND Nurse Practitioner Acute Care
DX: D64.9 Anemia, unspecified (principal); D69.6 Thrombocytopenia, unspecified; Z88.0 Allergy status to penicillin; Z91.030 Bee allergy status
CPT/HCPCS: 36415; 36430; 85014; 85018; 86850; 86900; 86901; A4216; P9016

== ENCOUNTER 2017-10-24 10:03 | Outpatient (CLI) | payer OTHER ==
[2017-10-24] MEDS ORDERED: ISOVUE-370 76%-LOCM 1 ML ONE (12:15)
== END 2017-10-24 10:04 | disposition home or self-care (01) ==
LOC: BICCT 10:03
PROVIDERS: ATTEND Internal Medicine Hematology & Oncology
DX: C34.30 Malignant neoplasm of lower lobe, unspecified bronchus or lung (principal); R91.8 Other nonspecific abnormal finding of lung field; M89.9 Disorder of bone, unspecified
CPT/HCPCS: 71260; 74177

== ENCOUNTER 2018-01-21 09:48 | Outpatient (CLI) | payer OTHER ==
[2018-01-21] MEDS ORDERED: Iopamidol 370 76% 100 ML VIAL ONE (12:52)
--- NOTE | 2018-01-21 13:01 | CT ---
CT CHEST WITH CONTRAST CT ABDOMEN AND PELVIS WITH CONTRAST: Technique: Multiple axial tomograms were obtained through the chest, abdomen, and pelvis with IV enha ncement and oral contrast. Indications: Follow up lung cancer. Comparison: 10-24-17, 09-12-17 FINDINGS: CT CHEST: The area of nodularity in the left upper lobe, apical region, continues to increase in density when c ompared to prior studies. This area was previously described as a focus of multinodular densities arianne suring up to 2.0 cm in axial plane. On today's exam this area of opacity has become more confluent. I t continues to measure approximately 1.9 cm in AP dimension but has increased in width measuring 1.5 cm in the axial plane today. Maximal coronal measurements today recorded at 1.6 cm, increased from pr ior exam of 1.0 cm. The second nodule previously described slightly more inferior in the left upper lobe has also increas ed in size. This was previously only faintly visualized measured in the 2-3 mm range. Today it measur es 7-8 mm in the axial plane. The mediastinum also shows change today. There is new adenopathy seen today. There is a precarinal ly mph node in the midline today measuring 1.5 cm which is new. There is now left hilar adenopathy today which is new from prior exam. Large left hilar lymph node is seen measuring up to 3.0 cm in the axia l plane. No axillary adenopathy. Thyroid unremarkable. Osseous structures unremarkable. IMPRESSION: 1. Both nodular densities in the left upper lobe have increased in size when compared to the prior ex am. 2. There is no mediastinal and left hilar adenopathy which has developed since the prior study. CT ABDOMEN AND PELVIS: The liver, spleen, and pancreas remain unremarkable. There are now bilateral adrenal masses which have occurred since the prior study. There is a right ad renal mass measuring up to 3.3 cm and there is a left adrenal mass involving the lateral rim of the l eft adrenal measuring 1.6 cm. Metastatic lesion would be suspected. Kidneys are unremarkable. Bowel loops unremarkable. Aorta shows atherosclerotic change and mild ectasia. No evidence of adenopathy. Diverticulosis of sigmoid again noted. Prostatic calcification. The ground glad sclerosis involving the right ileum noted on the prior exam is unchanged in appearanc e. There is increasing sclerosis now seen involving the right sacrum when compared to the prior study . Compression deformity of L5 again noted. The sclerotic and lytic process involving the left pelvis wing and left acetabulum. There is now a la rge lytic lesion involving the left ileum and acetabulum measuring 3.6 cm craniocaudal in the coronal plane. There is also a new osseous lesion which involves the proximal right femur at the lesser trochanter. This is a lytic process involving the medial cortex of the femur at this location. There is a large s oft tissue component measuring up to 6 cm AP dimension in the axial plane. IMPRESSION: 1. Bilateral adrenal masses have occurred since the prior exam indicating bilateral adrenal metaphysi s. 2. There are new bone lesions now seen. Increasing sclerosis and lysis involving the right sacrum is apparent today. There is a new lytic lesion involving the left ileum and left acetabulum with a soft tissue component as described above. There is a large lytic mass with large soft tissue component inv olving the proximal right femur at the lesser trochanter as described Above. The abnormal sclerosis i nvolving the right iliac ring does not appear significantly changed. POS: [facility]
--- NOTE | 2018-01-21 15:06 | NM ---
NUCLEAR MEDICINE BONE SCAN WHOLE BODY: (SKELETAL SCINTIGRAPHY) DATE: 01/21/2018. HISTORY: A 62-year-old male with malignant neoplasm of lower lobe, unspecified bronchus or lung. Followup bon e metastasis. Status post chemotherapy. TECHNIQUE: IV injection of [id number]: 32.5 mCi. 3 hour delayed whole body skeletal scintigraphy in anterior and posterior views. COMPARISON: Bone scans of 09/12/2017 and 07/04/2017. FINDINGS: Multiple skeletal metastases have been described on the prior reports. The osteolastic activity (deg ree of uptake) of these lesions has progressive decreased, especially compared to 07/04/2017. This in cludes currently significantly less activity involving the left 1st and 2nd rib lesions, right cisco administrator olateral 11th rib lesion, and the right lesser trochanteric right proximal femoral lesion. However, the CTs of today demonstrate that many of these lesions have increased in size. The explana tion for the decreased uptake on the current bone scan compared to the prior bone scans, is that the expanding lesions have become more osteolytic, indicating more osteoclastic activity, and less osteob lastic activity (hence less MDP uptake). There is still significantly increased uptake in the left supraacetabular iliac lesion. The degree o f uptake involving the left calvarium is similar to 09/12/2017. The uptake at the right iliac crest gonzalez s decreased since 09/12/2017. The uptake in the left intertrochanteric region has decreased compared t o 09/12/2017. IMPRESSION: 1. Overall decrease in the degree of radiopharmaceutical uptake at many of the skeletal osseous meta static lesions. 2. However, some of these lesions with less uptake now are larger on today's CT compared to prior CT s. 3. This is due to lesser osteoblastic activity, and greater osteoclastic activity for those particul ar lesions now. OLEGARIO Garza POS: [facility]
== END 2018-01-21 09:49 | disposition home or self-care (01) ==
LOC: NM 09:48
PROVIDERS: ATTEND Internal Medicine Hematology & Oncology
DX: C34.30 Malignant neoplasm of lower lobe, unspecified bronchus or lung (principal); R91.8 Other nonspecific abnormal finding of lung field; E27.8 Other specified disorders of adrenal gland; M89.9 Disorder of bone, unspecified
CPT/HCPCS: 71260; 74177; 78306; 82565; A9503

== ENCOUNTER 2018-01-24 21:24 | Emergency (ER) | payer OTHER, SELFPAY ==
[2018-01-24] MEDS ORDERED: Ondansetron ODT 4 MG TAB ONE (22:17)
[2018-01-24] MEDS ORDERED: Morphine 4 MG/ML VIAL ONE ×2 (22:17→22:27)
--- NOTE | 2018-01-24 23:06 | CT ---
CT LUMBAR SPINE PERFORMED WITHOUT CONTRAST ENHANCEMENT: HISTORY: The patient has lung cancer. History of lytic bone lesions. The patient complains of back pain afte r a fall. COMPARISON: 01/21/2018 FINDINGS: The bones are diffusely demineralized. The marked compression deformity of L5 is again demonstrated. The mixed sclerotic and lytic bone changes of the sacrum are stable. Once again, a moderate degree of canal narrowing is associated at the L5 vertebral body compression injury and slight retropulsion , but this appears similar to the prior exam. IMPRESSION: Stable overall appearance to the lumbar spine and sacrum. Stable compression changes of L5. POS: [facility]
--- NOTE | 2018-01-24 23:08 | CT ---
CT THORACIC SPINE PERFORMED WITHOUT CONTRAST ENHANCEMENT: HISTORY: Back pain after fall. History of lung cancer. FINDINGS: The vertebral bodies maintain normal height. Degenerative osteophytes are present. I do not see any signs of any acute compression injury. IMPRESSION: No CT evidence of fracture of the thoracic spine. POS: [facility]
== END 2018-01-24 22:56 | disposition home or self-care (01) ==
LOC: ERS 21:24
DX: M54.5 Low back pain (principal); M54.6 Pain in thoracic spine; E78.5 Hyperlipidemia, unspecified; I10 Essential (primary) hypertension; Z79.899 Other long term (current) drug therapy; Z79.82 Long term (current) use of aspirin
CPT/HCPCS: 72128; 72131; 96372; J2270; Q0162

== ENCOUNTER 2018-01-26 16:42 | Inpatient (IN) | payer SELFPAY ==
[2018-01-26 17:34] VITALS: BMI 24.4
[2018-01-26] MEDS ORDERED: Morphine 4 MG/ML VIAL SLOW IVP PRN (17:44)
[2018-01-26 18:00] LABS: #Eosinphils 0.1 thou/uL (0.0-0.7); #Lymphocytes 0.7 thou/uL (1.20-3.40); %Basophils 0.1 % (0.0-1.0); %Eosinophils 0.8 % (0.0-10.0); %Lymphocytes 5.6 % (21.0-51.0); %Monocytes 8.8 % (0.0-10.0); %Neutrophils 84.6 % (42.0-75.0); Hemoglobin 11.8 g/dL (14.0-18.0); Mean Corpuscular HGB CONC 32.4 g/dL (32.0-36.0); Mean Corpuscular Hemoglobin 32.7 pg (27.0-31.0); Mean Platelet Volume 7.9 fL (7.4-10.4); Platelet Count 160 thou/uL (130-400); RBC Distribution Width 12.8 % (11.5-14.5); Red Blood Cell (RBC) Count 3.61 mill/uL (4.70-6.10); White Blood Cell (WBC) Count 11.8 thou/uL (4.8-10.8)
[2018-01-26 18:24] LABS: Anion Gap 12 mmol/L (10-20); BUN (Urea Nitrogen) 35 mg/dL (8.4-25.7); Calc. Creatinine Clearance 59 mL/min (70-130); Calcium 9.8 mg/dL (7.8-10.44); Carbon Dioxide 26 mmol/L (23-31); Chloride 102 mmol/L (98-107); Estimated GFR-MDRD 48; Glucose 123 mg/dL (80-115); Potassium 3.9 mmol/L (3.5-5.1); Sodium 136 mmol/L (136-145)
[2018-01-26] MEDS: Sodium Chloride 0.9% 1,000 ML IV SCH (18:32)
[2018-01-26] MEDS: Atorvastatin Calcium 20 MG TAB PO SCH (21:48)
[2018-01-27 04:39] LABS: #Eosinphils 0.2 thou/uL (0.0-0.7); #Lymphocytes 0.9 thou/uL (1.20-3.40); #Monocytes 1.2 thou/uL (0.11-0.59); #Neutrophils 10.1 thou/uL (1.40-6.50); %Basophils 0.2 % (0.0-1.0); %Eosinophils 1.2 % (0.0-10.0); %Lymphocytes 7.3 % (21.0-51.0); %Monocytes 9.8 % (0.0-10.0); %Neutrophils 81.4 % (42.0-75.0); Hemoglobin 12.1 g/dL (14.0-18.0); Mean Corpuscular HGB CONC 33.1 g/dL (32.0-36.0); Mean Corpuscular Hemoglobin 33.1 pg (27.0-31.0); Mean Corpuscular Volume 99.9 fL (78.0-98.0); Mean Platelet Volume 7.9 fL (7.4-10.4); Platelet Count 166 thou/uL (130-400); RBC Distribution Width 12.7 % (11.5-14.5); Red Blood Cell (RBC) Count 3.67 mill/uL (4.70-6.10); White Blood Cell (WBC) Count 12.4 thou/uL (4.8-10.8)
[2018-01-27 04:57] LABS: BUN (Urea Nitrogen) 28 mg/dL (8.4-25.7); Calc. Creatinine Clearance 72 mL/min (70-130); Calcium 9.7 mg/dL (7.8-10.44); Carbon Dioxide 22 mmol/L (23-31); Estimated GFR-MDRD 61; Glucose 141 mg/dL (80-115); Magnesium 1.8 mg/dL (1.6-2.6)
[2018-01-27 04:58] LABS: Chloride 105 mmol/L (98-107); Potassium 3.9 mmol/L (3.5-5.1); Sodium 137 mmol/L (136-145)
[2018-01-27 05:14] LABS: Anion Gap 14 mmol/L (10-20)
--- NOTE | 2018-01-27 07:52 | HP ---
DATE OF ADMISSION: 01/26/2018 TIME OF SERVICE: 1900. CHIEF COMPLAINT: Fall. HISTORY OF PRESENT ILLNESS: Mr. Leos is a pleasant 62-year-old white gentleman with history of small cell lung cancer with metastasis, hypertension, hyperlipidemia, and chronic Daily's palsy. The patient initially presented to emergency department on 01/24/2018 after acute onset of back pain from falling. The patient lost his balance and fell backwards. He did not trip, did not have any lo ss of consciousness, no head injury. No imaging of the head was done. A CT scan of the spine was un remarkable. He was given tramadol and sent home. The patient does have a history of small cell lung cancer treated with chemo and radiation and finished therapy sometime on September or October of 2017. He h ad evaluation on 12/2017 and told he was "cancer free". I spoke with Dr. Aden after admission, sh e stated that he has had slow progression of his cancer. The patient presented to Dr. Aden's office on 01/26/2018 for evaluation of the dysequilibrium and fall, she is concerned that there may be some brain metastasis, so she had him admitted to our servic e for further workup and evaluation. PAST MEDICAL HISTORY: 1. Small cell lung cancer as above. 2. Hypertension. 3. Hyperlipidemia. 4. Daily's palsy. PAST SURGICAL HISTORY: Includes: 1. Appendectomy. 2. Left knee arthroscopy. HOME MEDICATIONS: 1. Lisinopril 20 mg p.o. daily. 2. Amlodipine 5 mg daily. 3. Aspirin 81 mg daily. 4. Zocor 40 mg p.o. at bedtime. ALLERGIES: PENICILLIN causes a rash as a child. FAMILY HISTORY: Negative for clotting or bleeding disorder, no immune dysfunction, no premature mireya nary artery disease. SOCIAL HISTORY: Negative for habits x3. REVIEW OF SYSTEMS: All systems reviewed and negative except as stated as above. PHYSICAL EXAMINATION: VITAL SIGNS: Temperature 97.9, pulse 84, blood pressure 136/74, respiratory rate 18, satting 99% on room air. GENERAL: He is awake, he is alert, he is oriented x3, well-developed, well-nourished white male who appears to be in no acute distress. HEENT: Normocephalic, atraumatic. Pupils are equal, round, and reactive to light bilaterally. Muco us membranes are moist. He has a little bit of right facial droop. NECK: Supple. There is no lymphadenopathy, JVD, or thyromegaly. He has normal carotid upstrokes. I do not appreciate bruit. CHEST: Lungs are clear. He has no wheezes, no rales, no rhonchi with good air movement. Symmetrica l chest excursion. He has no prolonged expiratory phase. CARDIOVASCULAR: Normal S1, S2. No S3, S4. No audible murmurs. ABDOMEN: Soft, it is nontender, nondistended. He has no hepatosplenomegaly. He has no rebound, rig idity or guarding. He has normoactive bowel sounds present in all 4 quadrants. EXTREMITIES: Show no cyanosis, no clubbing, no edema. SKIN: Warm, moist and well perfused. He has no rashes, no lesions. MUSCULOSKELETAL: Normal to inspection. He has no tenderness along the spine. He has no inflammatio n or palpable effusions to his large joints. NEUROLOGIC: Shows cranial nerves II through XII are grossly intact with the exception of a right Bel l's palsy. He has no focal deficits, normal speech pattern and 5/5 strength in all 4 extremities. I did not get him up and walk him and test his coordination. LABORATORY DATA: Sodium 142, potassium 4.8, chloride 103, bicarbonate 28, BUN 31, creatinine 1.38, g lucose 106. Liver function within normal limits. CBC showed white count 11.8, hemoglobin of 11.8, hematocrit of 36.5, and platelet count is 160,000. IMAGING: As above. ASSESSMENT AND PLAN: 1. Dysequilibrium. 2. Fall from same level. 3. Metastatic small cell lung cancer. 4. Hypertension. 5. Hyperlipidemia. 6. Chronic Daily's palsy. I will place the patient in inpatient status. We will get MRI of the brain with and without contrast . Pain medicine has been ordered by Dr. Aden. I will follow up with the results. A.m. labs have been ordered.
[2018-01-27] MEDS ORDERED: Lisinopril 20 MG TAB PO SCH (09:00)
[2018-01-27] MEDS: Multivitamin W/ Minerals 1 TAB PO SCH (09:32)
[2018-01-27] MEDS: Amlodipine 5 MG TAB PO SCH (09:33)
[2018-01-27] MEDS ORDERED: Dexamethasone 10 MG/ML VIAL SLOW IVP SCH (11:00)
--- NOTE | 2018-01-27 11:51 | MRI ---
MRI BRAIN WITH AND WITHOUT CONTRAST: HISTORY: Small cell carcinoma. Evaluate for metastases. COMPARISON: None. TECHNIQUE: MRI brain is performed with and without intravenous administration. Multisequential, multiplanar nevin ging is performed. FINDINGS: There is some hemorrhage, likely associated with a metastatic lesion, in the left frontal lobe. Ther e is signal loss on the axial GRE sequence. Additional areas of hemorrhage are noted involving metas tatic lesions in the right frontal lobe, right occipital and parietal lobes, and left temporal lobe. There is extensive T2 and FLAIR hyperintensity involving the left and right cerebrum, as well as the cerebellum and mid brain structures. There are multifocal, [id number]-count, peripherally enhancin g lesions throughout the brain parenchyma, compatible with extensive multifocal metastases. A repres entative metastatic lesion in the right thalamus measures 2.1 x 1.8 cm. A manufacturer's representative lesion in t he left thalamus measures 1.9 x 2.5 cm. There is invasion of the left frontal calvarium, with extens ion into the adjacent scalp, as well as the underlying dura. This calvarial lesion measures 1.5 cm i n craniocaudal dimension. There is no midline shift. The basilar cisterns are patent. No significant sinus or mastoid air cell opacification. IMPRESSION: Extensive, multifocal intracranial metastases. Some of these metastatic lesions do have components o f hemorrhage. The results of the study were discussed with Dr. Aden on 01/27/2018 at 10:39 a.m. CODE JOSE L POS: ESTHER
--- NOTE | 2018-01-27 14:40 | PDOC.PN ---
- Subjective Encounter Start Date: 01/27/18 Encounter Start Time: 11:00 Patient seen and examined for Gen weakness/falls. No new complaints. No overnight events - Objective MAR Reviewed: Yes Vital Signs & Weight: Vital Signs (12 hours) Temp Pulse Resp BP BP BP Pulse Ox 01/27/18 11:55 98.3 F 101 H 16 138/77 94 L 01/27/18 09:33 87 169/80 H 01/27/18 09:32 169/80 H 01/27/18 08:00 98.3 F 87 16 169/80 H 92 L Weight Weight 175 lb I&O: 01/26/18 01/27/18 01/28/18 06:59 06:59 06:59 Output Total 100 Balance -100 Result Diagrams: 01/27/18 04:23 01/27/18 04:22 Phys Exam - Physical Examination Constitutional: NAD Respiratory: no wheezing, no rhonchi Cardiovascular: RRR, no rub Gastrointestinal: soft, non-tender, positive bowel sounds Musculoskeletal: no edema Dx/Plan - Plan DVT proph w/SCDs IMPRESSION: 1. Gen weakness/Falls/RENY on CKD 2 2. Small cell Lung Ca 3. HTN 4. HLD PLAN: Await MRI Oncology following Hold Lisinopril Cont IVF Review of Systems - Review of Systems Respiratory: negative: Cough, Dry, Shortness of Breath, Hemoptysis, SOB with Excertion, Pleuritic Pain, Sputum, Wheezing Cardiovascular: negative: chest pain, palpitations, orthopnea, paroxysmal nocturnal dyspnea, edema, light headedness, other Gastrointestinal: negative: Nausea, Vomiting, Abdominal Pain, Diarrhea, Constipation, Melena, Hematochezia, Other - Medications/Allergies Allergies/Adverse Reactions: Allergies Allergy/AdvReac Type Severity Reaction Status Date / Time bee venom protein (honey bee) Allergy Verified 03/28/17 11:45 Penicillins Allergy Verified 01/26/18 17:34 Medications: Current Medications Amlodipine Besylate (Norvasc) 5 mg PO DAILY [facility] Last Admin: 01/27/18 09:33 Dose: 5 mg Aspirin (Aspirin Chewable) 81 mg PO DAILY [facility] Last Admin: 01/27/18 09:32 Dose: 81 mg Atorvastatin Calcium (Lipitor) 20 mg PO HS [facility] Last Admin: 01/26/18 21:48 Dose: 20 mg Dexamethasone (Decadron) 4 mg SLOW IVP Q6HR [facility] Famotidine (Pepcid) 20 mg PO BID [facility] Sodium Chloride (Normal Saline 0.9%) 1,000 mls @ 50 mls/hr IV .Q20H [facility] Last Admin: 01/26/18 18:32 Dose: 1,000 mls Iron/Minerals/Multivitamins (Theragran M) 1 tab PO DAILY [facility] Last Admin: 01/27/18 09:32 Dose: 1 tab Lisinopril (Zestril) 20 mg PO DAILY [facility] Last Admin: 01/27/18 09:32 Dose: 20 mg Morphine Sulfate (Morphine) 2 mg SLOW IVP Q4H PRN PRN Reason: Mild-Moderate Pain (1-5) Last Admin: 01/27/18 09:35 Dose: 2 mg Morphine Sulfate (Morphine) 4 mg SLOW IVP Q4H PRN PRN Reason: Moderate to Severe Pain (6-10) Sodium Chloride (Flush - Normal Saline) 10 ml IVF Q12HR [facility] Sodium Chloride (Flush - Normal Saline) 10 ml IVF PRN PRN PRN Reason: Saline Flush
[2018-01-27] MEDS: Sodium Chloride 0.9% 1,000 ML IV SCH (17:37)
[2018-01-27] MEDS: Dexamethasone 4 mg/ml Vial SLOW IVP SCH ×2 (17:38→23:31)
[2018-01-27] MEDS: Atorvastatin Calcium 20 MG TAB PO SCH (20:28)
[2018-01-27] MEDS: Famotidine 20 MG TAB PO SCH (20:28)
--- NOTE | 2018-01-27 21:45 | CON ---
DATE OF CONSULTATION: 01/27/2018 REASON FOR CONSULTATION: Small-cell lung cancer. HISTORY OF PRESENT ILLNESS: A 62-year-old male with metastatic small-cell carcinoma of the lung directly admitted to the hospital on 01/26/[address] Aden for evaluation of disequilibrium and fall with concern for metastatic disease to the brain. Of note, the patient presented to the ER on 01/24/2018 after acute onset of back pain after a fall, where the patient lost his balance and fe ll backwards. There was no imaging of the head done at that time. The patient only received a CT of the spine and was discharged home with tramadol. The patient initially presented to the oncology [facility] in 04/2017. The patient received carboplatin and Taxol due to etoposide shortage, followed by c arboplatin and etoposide for a total of 7 cycles of chemotherapy with a minimal partial response to t reatment. The patient also received radiation to his hip from Dr. Wallis. Since admission to the [facility], the patient states his pain is under better control. He denies any headaches or change in his vision, but does complain of imbalance when he stands and walks without dizziness and lower extremit y weakness. The MRI of the brain upon presentation to hospital showed diffuse metastatic disease. T he patient otherwise denies any other new pains, worsening shortness of breath, or cough. REVIEW OF SYSTEMS: Ten-point review of systems is negative except as per HPI. PAST MEDICAL HISTORY: Small-cell lung cancer, hypertension, hyperlipidemia, Daily's palsy. PAST SURGICAL HISTORY: Appendectomy, left knee arthroscopy. HOME MEDICATIONS: Reviewed. ALLERGIES: PENICILLIN. FAMILY HISTORY: Mother did have a history of lung and ovarian cancer. SOCIAL HISTORY: The patient is qtk-wadw-exo-day smoker. PHYSICAL EXAMINATION: VITAL SIGNS: Temperature 98.3, pulse 101, respirations 16, saturating 94% on room air, blood pressur e 138/77. GENERAL APPEARANCE: The patient is lying in bed in no acute distress. CARDIOVASCULAR: Normal S1, S2. Regular rate and rhythm. LUNGS: Clear to auscultation bilaterally. ABDOMEN: Soft, nondistended, nontender. LYMPHATICS: No palpable lymphadenopathy. MUSCULOSKELETAL: No lower extremity tenderness to palpation. NEUROLOGIC: Cranial nerves II-XII grossly intact; however, the patient does have left-sided ptosis. Bilateral upper extremity strength 4/5, left lower extremity strength 5/5, right lower extremity 3/5 . LABORATORY DATA: White blood cells 12.4, hemoglobin 12.1, hematocrit 36.7, platelets 166. Sodium 13 7, BUN 28, creatinine 1.21, calcium 9.7. IMAGING DATA: MRI of the brain with and without contrast dated 01/27/2018 showed some hemorrhage, li kate associated with a metastatic lesion in the left frontal lobe. Additional areas of hemorrhage ar e noted involving metastatic lesions in the right frontal lobe, right occipital and parietal lobes, a nd left temporal lobe. There was extensive T2 and FLAIR hyperintensity involving the left and right cerebrum, as well as the cerebellum and midbrain structures. There are multifocal too many to count peripherally enhancing lesions throughout the brain parenchyma compatible with extensive multifocal m etastases. 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 Representa tive lesion in the left thalamus measures 1.9 x 2.5 cm. There was invasion of the left frontal jhoan rium with extension into the adjacent scalp as well as the underlying dura. This calvarium lesion me asures 1.5 cm in craniocaudal dimension. There is no midline shift. The basilar cisterns are patent . IMPRESSION: Extensive multifocal intracranial metastases. Some of these metastatic lesions do have components of hemorrhage. ASSESSMENT AND PLAN: A 62-year-old male with metastatic small-cell lung cancer to bones an d brain, presenting to the hospital with disequilibrium and weakness. The patient has asymmetric wea kness in the extremities with right lower extremity strength 3/5. The patient has noticed some imbal ance when he walks; however, is able to walk with physical therapy. Other than his neurologic compla ints, the patient does appear well and states that his pain is under better control since admission t o the hospital. The patient received intensive chemotherapy on presentation with small cell; however , only achieved a mild response to therapy that was very brief in duration. The patient likely has c hemo-resistant disease and may benefit from combined immunotherapy with nivolumab plus ipilimumab. T he patient may or may not be a candidate for whole-brain radiotherapy and this has been discussed wit h Dr. Wallis, who will see the patient. If he is a candidate, he would need whole brain prior to init iation of immunotherapy. This was discussed with the patient and his in detail. I have also di scussed these findings with Dr. Aden. We will follow along with you. Thank you for this consult.
--- NOTE | 2018-01-27 23:27 | CON ---
DATE OF CONSULTATION: 01/27/2018 REASON FOR CONSULTATION: Mr. Mcdermott is a 62-year-old gentleman with a long history of metastatic small cell carcinoma. He was recently found to have numerous brain metastases. HISTORY OF PRESENT ILLNESS: Mr. Mcdermott is known to me. He had small cell carcinoma that was diag nosed with a bone metastases in 04/2017. It was never certain where the primary site was although oc cult metastatic disease was suspected. He underwent palliative chemotherapy and then ultimately had palliative radiation therapy to the lower lumbar spine and upper sacral area, as well as the right il iac bone area. Last week, he was found to have progression of his disease, both in the lung and medi astinum as well as in the adrenal glands and in the bones by CT scan and bone scan. He was admitted yesterday because of having 5-6 days of confusion and incontinence. He has had more trouble with his legs and walking since December. Mainly, this is because of pain in both hip regions. He can walk , but can walk slowly and has to walk with assistance. He has not been having any headaches or nause a or vomiting. Since being admitted to the hospital, he had an MRI of the brain this morning, which showed numerous areas of brain metastases. He has been placed on dexamethasone and the symptoms are better. I was asked to see him for consideration of palliative radiation therapy. Other than the pa in in the hips, he reports having no other difficulties. PAST MEDICAL HISTORY: 1. Hypertension. 2. Hypercholesterolemia. 3. History of left-sided Daily's palsy. 4. Status post appendectomy. 5. Status post left knee surgery. MEDICATIONS: Simvastatin, multivitamin, lisinopril, aspirin, and Norvasc. He is also on dexamethaso ne, Pepcid, and morphine p.r.n. for pain. ALLERGIES: PENICILLIN, which caused a rash and BEE STINGS which caused him to pass out. SOCIAL HISTORY: He has a [id number] history of smoking and still smokes. He also drinks an occasi onal alcoholic beverage although he has not had alcohol for some time. 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 He lives in [place], [place], with his . FAMILY HISTORY: His mother from ovarian cancer and lung cancer. He is not clear whether this i s metastatic ovarian cancer. There is no other family history of malignancy. REVIEW OF SYSTEMS: This is positive for weight loss. Remainder of 12-system review of systems is ot herwise negative. PHYSICAL EXAMINATION: VITAL SIGNS: Height 5 feet 11 inches, weight 175 pounds, blood pressure is 138/77, pulse is 101, res pirations are 16, temperature 98.3, O2 saturation is 94%. GENERAL: He is alert and oriented and in no apparent distress. He is well-developed and well-nouris hed. Karnofsky performance status is 60%. EYES: Pupils are equal, round, react to light. Extraocular movements are intact. He does have some slight ptosis of the left eyelid, but I think this is chronic from his Daily's palsy as best I can re member. ENT: Oral cavity and oropharynx normal without lesion or erythema. Palate elevates symmetrically. Gingiva is intact. NECK: Supple, without cervical or clavicular adenopathy. No thyromegaly. Larynx midline. LUNGS: Breathing nonlabored. Clear to auscultation and percussion. HEART: Regular rate and rhythm without murmur. No lower extremity edema. BACK: No tenderness on fist percussion of his spine. LYMPHATIC: No axillary or inguinal adenopathy. ABDOMEN: Soft, nontender, nondistended, without mass or hepatosplenomegaly. Liver percusses to norm al size. SKIN: Without rash or purpura. NEUROLOGIC: Cranial nerves II-XII are grossly intact. Motor strength appears to be good in both upp er and lower extremities. He might have some weakness in the hips bilaterally, but this seems more f rom pain and does actual weakness. Distally, his strength is good. He is able to ambulate with some assistance, but does have a shuffling gait with very short steps. He has to walk with assistance. He takes in quite some time to get out of bed. He again seems to be oriented to person and situation as well as time and recent events. RADIOLOGIC DATA: CT scan of the chest, abdomen, and pelvis as well as bone scan from last week. An MRI of the brain from today was all personally reviewed. Again, he has too numerous to count brain m etastases with surrounding vasogenic edema. He appears to have progression systemically with progres edwige in the lungs in the mediastinum and adrenal glands and in the bones. He has a lesion in the lef t acetabular area as well as in the left proximal femur and he has a lesion in the right proximal fem ur. LABORATORY DATA: Chemistry group showed normal electrolytes with a creatinine of 1.21. CBC revealed a white blood count of 12,400 with hemoglobin of 12.1, hematocrit 36.7, platelet count of 166,000. ASSESSMENT: Mr. Leos is a 62-year-old gentleman with a stage IV metastatic small cell carcinoma of the lung who has progression systemically including in the lung and adrenal glands and bone and n ow has progression with new onset too numerous to count brain metastases. His symptoms are improved with the dexamethasone. I think he is symptomatic, both from the brain metastatic lesions as well as from the lesions in both proximal femurs. PLAN: I had a lengthy discussion with Mr. Leos and his regarding his diagnosis, prognosis, prognostic factors, and treatment options. I think this is a very difficult situation. His disease has progressed systemically quite soon after his primary therapy. We do not have very good systemic options at this point either. Additionally, he has too numerous to count brain metastases. I expla ined to them that I think his survival is likely to be short even with treatment and by that this is likely to be less than 6 months. I agree with the initiation of dexamethasone and the Pepcid. We di scussed 2 options. One option would be to treat him with whole-brain radiation therapy as well as ra diation therapy to both proximal femurs. This is because he appears to be symptomatic from all 3 sit es. Hopefully, this would improve his pain and improve his ability to walk as well as perhaps buy hi m a little time. Nevertheless, I emphasized to him that I think his survival is going to be quite sh ort even with treatment because of the short response to his initial treatment, the extent of his dis ease, and lack of systemic control of his disease. We discussed the option of radiation therapy to t he brain and to both proximal femurs. The logistics of radiation as well as the benefits and risks o f treatment were discussed. Side effects would include but not be limited to skin reaction, fatigue, lower blood counts, hair loss which may be permanent, headache, nausea, vomiting, and small risk of damage to his normal brain. We also discussed in treating his femurs that he could have some swellin g of the extremities or perhaps some irritation of the bowel which may cause some diarrhea or nausea or vomiting, but this is unlikely. Again, I explained to them that radiation at best may provide a f ew additional months of survival. The other option that we discussed was that of hospice care. We h ad a lengthy discussion about that option considering that it is going to be somewhat difficult for lary chu to come as an outpatient every day since he lives in [facility]. Time was taken to answer all t heir questions regarding that option as well. They are going to think about their option tonight and let me know how they wish to proceed. Thank you for this interesting consultation.
[2018-01-28] MEDS: Dexamethasone 4 mg/ml Vial SLOW IVP SCH ×3 (06:07→18:21)
[2018-01-28] MEDS ORDERED: hydrALAZINE 20 MG/ML VIAL SLOW IVP PRN (07:36)
[2018-01-28] MEDS: Famotidine 20 MG TAB PO SCH ×2 (10:22→20:26)
[2018-01-28] MEDS: Amlodipine 5 MG TAB PO SCH (10:23)
[2018-01-28] MEDS: Multivitamin W/ Minerals 1 TAB PO SCH (10:24)
[2018-01-28] MEDS: Sodium Chloride 0.9% 1,000 ML IV SCH (16:32)
--- NOTE | 2018-01-28 18:54 | PDOC.PN ---
- Subjective Encounter Start Date: 01/28/18 Encounter Start Time: 09:00 Patient seen and examined for Gen weakness. No new complaints. No overnight events - Objective MAR Reviewed: Yes Vital Signs & Weight: Vital Signs (12 hours) Temp Pulse Pulse Pulse Resp BP BP 01/28/18 11:25 74 69 153/67 H 01/28/18 10:23 81 123/64 01/28/18 08:00 01/28/18 07:13 97.9 F 77 18 BP BP Pulse Ox Pulse Ox Pulse Ox 01/28/18 11:25 134/72 98 97 01/28/18 10:23 01/28/18 08:00 95 01/28/18 07:13 132/72 95 Weight Weight 175 lb I&O: 01/27/18 01/28/18 01/29/18 06:59 06:59 06:59 Intake Total 1590 604 Output Total 100 150 Balance -100 1440 604 Result Diagrams: 01/27/18 04:23 01/27/18 04:22 Radiology Reviewed by me: Yes (MRI - Mets) Phys Exam - Physical Examination Constitutional: NAD Respiratory: no wheezing, no rhonchi Cardiovascular: RRR, no rub Gastrointestinal: soft, non-tender, positive bowel sounds Musculoskeletal: no edema Dx/Plan - Plan DVT proph w/SCDs IMPRESSION: 1. Gen weakness/Falls/RENY on CKD 2 2. Small cell Lung Ca 3. HTN 4. HLD 5. Other issues per previous notes PLAN: Patient/family deciding on hospice vs radiation Oncology/Radiation Onc following Lisinopril on hold Cont IVF DC ASA Review of Systems - Review of Systems Respiratory: negative: Cough, Dry, Shortness of Breath, Hemoptysis, SOB with Excertion, Pleuritic Pain, Sputum, Wheezing Cardiovascular: negative: chest pain, palpitations, orthopnea, paroxysmal nocturnal dyspnea, edema, light headedness, other - Medications/Allergies Allergies/Adverse Reactions: Allergies Allergy/AdvReac Type Severity Reaction Status Date / Time bee venom protein (honey bee) Allergy Verified 03/28/17 11:45 Penicillins Allergy Verified 01/26/18 17:34 Medications: Current Medications Amlodipine Besylate (Norvasc) 5 mg PO DAILY [facility] Last Admin: 01/28/18 10:23 Dose: 5 mg Atorvastatin Calcium (Lipitor) 20 mg PO HS [facility] Last Admin: 01/27/18 20:28 Dose: 20 mg Dexamethasone (Decadron) 4 mg SLOW IVP Q6HR [facility] Last Admin: 01/28/18 18:21 Dose: 4 mg Famotidine (Pepcid) 20 mg PO BID [facility] Last Admin: 01/28/18 10:22 Dose: 20 mg Hydralazine HCl (Apresoline) 10 mg SLOW IVP Q4H PRN PRN Reason: SBP Greater Than 180 Sodium Chloride (Normal Saline 0.9%) 1,000 mls @ 50 mls/hr IV .Q20H [facility] Last Admin: 01/28/18 16:32 Dose: 1,000 mls Iron/Minerals/Multivitamins (Theragran M) 1 tab PO DAILY [facility] Last Admin: 01/28/18 10:24 Dose: 1 tab Morphine Sulfate (Morphine) 2 mg SLOW IVP Q4H PRN PRN Reason: Mild-Moderate Pain (1-5) Last Admin: 01/27/18 09:35 Dose: 2 mg Morphine Sulfate (Morphine) 4 mg SLOW IVP Q4H PRN PRN Reason: Moderate to Severe Pain (6-10) Sodium Chloride (Flush - Normal Saline) 10 ml IVF Q12HR [facility] Last Admin: 01/28/18 10:25 Dose: 10 ml Sodium Chloride (Flush - Normal Saline) 10 ml IVF PRN PRN PRN Reason: Saline Flush Last Admin: 01/28/18 06:07 Dose: 10 ml
[2018-01-28] MEDS: Atorvastatin Calcium 20 MG TAB PO SCH (20:26)
[2018-01-28] MEDS ORDERED: Senokot S 8.6-50 MG TAB PO SCH (21:00)
[2018-01-29] MEDS: Dexamethasone 4 mg/ml Vial SLOW IVP SCH ×2 (00:38→05:08)
[2018-01-29] MEDS: Sodium Chloride 0.9% 1,000 ML IV SCH (05:08)
[2018-01-29 08:47] VITALS: BP 115/64; TEMP 97.9
[2018-01-29] MEDS ORDERED: Polyethylene Glycol 3350 17 GM Packet PO SCH (09:00)
[2018-01-29] MEDS: Multivitamin W/ Minerals 1 TAB PO SCH (09:24)
[2018-01-29] MEDS: Amlodipine 5 MG TAB PO SCH (09:24)
[2018-01-29] MEDS: Famotidine 20 MG TAB PO SCH (09:24)
--- NOTE | 2018-01-29 13:50 | DIS ---
DATE OF DISCHARGE: 01/29/2018 DISCHARGE DISPOSITION: Home. FOLLOWUP: Follow up with primary care physician, Oralia Robledo in 1 week. Follow up with Oncology an d Radiation Oncology as scheduled. ALLERGIES: The patient is allergic to PENICILLIN. DISCHARGE MEDICATIONS: Amlodipine 5 mg daily, multivitamin 1 tablet daily, dexamethasone 4 mg 3 time s a day. Primary care physician to provide refills, Pepcid 20 mg b.i.d. The patient was seen and examined on the day of discharge, denies any new complaint, no chest pain, s hortness of breath, palpitations. BRIEF HOSPITAL COURSE: The patient is a 62-year-old male with small cell lung cancer who presented t o the hospital with generalized weakness and fall. Please refer to the history and physical for furt her details. The patient was admitted to the hospital with the above diagnosis. An MRI of the brain was obtained that was consistent with extensive multifocal intracranial metastasis. He was started on IV dexameth asone per Oncology. He was also seen by Radiation Oncology. After extensive discussion, the patient and the family decided going home with hospice. FINAL DIAGNOSES: 1. Generalized weakness, falls secondary to brain metastasis. 2. Acute kidney injury on chronic kidney disease stage 2. 3. Small cell lung cancer. 4. Hypertension. 5. Hyperlipidemia. 6. Chronic Daily's palsy. 7. Penicillin allergy. 8. Chronic anemia. MEDICATION DISCONTINUED THIS ADMISSION: Lisinopril and aspirin. Plan of care was discussed with the patient and the family in detail. They stated understanding.
== END 2018-01-29 10:52 | disposition hospice, home (50) | DRG 54 ==
LOC: ONC 16:42
PROVIDERS: ADMIT Internal Medicine Infectious Disease; ATTEND Internal Medicine Infectious Disease
DX: C79.31 Secondary malignant neoplasm of brain (principal); I61.8 Other nontraumatic intracerebral hemorrhage; N17.9 Acute kidney failure, unspecified; E78.5 Hyperlipidemia, unspecified; G51.0 Bell's palsy; Z79.82 Long term (current) use of aspirin; Z88.0 Allergy status to penicillin; Z85.118 Personal history of other malignant neoplasm of bronchus and lung; I12.9 Hypertensive chronic kidney disease with stage 1 through stage 4 chronic kidney disease, or unspecified chronic kidney disease; N18.2 Chronic kidney disease, stage 2 (mild); D64.9 Anemia, unspecified; Z92.3 Personal history of irradiation; E78.00 Pure hypercholesterolemia, unspecified; Z91.030 Bee allergy status; F17.210 Nicotine dependence, cigarettes, uncomplicated; Z51.5 Encounter for palliative care
CPT/HCPCS: 36415; 70553; 80048; 83735; 85025; G8978-GP-CK; G8979-GP-CI; G8987-GO-CK; G8988-GO-CI; J1100; J2270